=== PATIENT | male | born 2000 | race Caucasian/White ===

== ENCOUNTER 2023-07-27 20:10 | Emergency (ER) | payer OTHER ==
[~2023-07-27] VITALS: Ht 180.3 cm; Wt 105.9 kg
[2023-07-27 20:15] VITALS: TEMP 97.6
[2023-07-27 20:48] LABS: BASO # 0.1 K/mm3 (0.0-0.2); BASO % 0.6 % (0.0-2.0); EOS # 0.2 K/mm3 (0.0-0.7); EOS % 1.5 % (0.0-4.0); GRAN # 5.9 K/mm3 (1.4-6.5); HEMATOCRIT 44.9 % (42.0-52.0); HEMOGLOBIN 15.5 g/dl (13.5-18.0); LYMPH # 4.1 K/mm3 (1.2-3.4); MEAN CELL VOLUME 84 fl (80.0-100.0); MEAN CORPUSCULAR HEMOGLOBIN 29 pg (27-31); MEAN CORPUSCULAR HGB CONC 35 g/dl (33.0-37.0); MEAN PLATELET VOLUME 9.1 fl (7.4-10.4); MONO # 1.1 K/mm3 (0.1-0.6); MONO % 9.5 % (1.7-9.3); PLATELET COUNT 308 K/mm3 (130-400); RED BLOOD COUNT 5.34 M/mm3 (4.20-5.60); REDCELL DISTRIBUTION WIDTH-CV 11.9 % (11.5-14.5)
[2023-07-27 20:53] LABS: ALANINE AMINOTRANSFERASE 33 U/L (0-55); ALBUMIN 4.5 gm/dL (3.5-5.0); ALKALINE PHOSPHATASE 85 U/L (40-150); ANION GAP 13 mmol/L (7-16); AST,SGOT 26 U/L (5-34); BILIRUBIN,TOTAL 0.6 mg/dL (0.2-1.2); BLOOD UREA NITROGEN 14 mg/dL (9-21); CALCIUM 10.2 mg/dL (8.4-10.2); CARBON DIOXIDE 23 mmol/L (22-29); CHLORIDE 104 mmol/L (98-107); GLUCOSE 127 mg/dL (70-99); POTASSIUM 3.1 mmol/L (3.5-4.5); SODIUM 140 mmol/L (136-145); TOTAL PROTEIN 8.1 gm/dL (6.2-8.1)
[2023-07-27 21:01] LABS: TROPONIN-I < 0.010 ng/mL (0.00-0.033)
[2023-07-27 22:50] VITALS: BP 113/77; PULSE 67
== END 2023-07-27 22:55 | disposition home or self-care (01) ==
LOC: COL.ER 20:10
PROVIDERS: Personal Emergency Response Attendant
DX: R07.89 Other chest pain (principal); Z28.310 Unvaccinated for COVID-19
CPT/HCPCS: J2060; J7030